=== PATIENT | female | born 1940 | race Caucasian/White ===

== ENCOUNTER 2020-12-24 16:30 | Emergency (ER) | payer MEDICARE, OTHER ==
--- NOTE | 2020-12-24 17:59 | EDM.PDOC ---
ED HPI GENERAL MEDICAL PROBLEM - General Chief Complaint: Lower Extremity Injury/Pain Stated Complaint: ACCIDENT VIA [facility] Time Seen by Provider: 12/24/20 17:46 Source of Information: Reports: Patient History Limitations: Reports: No Limitations - History of Present Illness INITIAL COMMENTS - FREE TEXT/NARRATIVE: Tanika is a 80-year-old female presenting to the ED for evaluation of left ankle and left knee pain after [place]. She thinks that when she landed she inverted her left ankle causing pain in her left knee to buckle. She does have a history of an arthroplasty of the left knee done many years ago. She is complaining of pain over the medial and lateral ankle although there is minimal swelling and no obvious deformity. She is also complaining of medial knee and thigh pain. She has significant pain with movement and weightbearing. In fact, she has been unable to weight-bear since the incident. She does say the ankle pain is better after taking aspirin. - Related Data Allergies Allergy/AdvReac Type Severity Reaction Status Date / Time meperidine [From Demerol] Allergy Hypotension Verified 12/24/20 17:13 Home Meds: Home Meds Escitalopram [Lexapro] 1 tab PO DAILY 12/24/20 [History] Gabapentin [Neurontin] 3 tab PO DAILY 12/24/20 [History] Metoprolol Succinate [Toprol XL] 25 mg PO DAILY #30 tab.er 12/24/20 [Rx] lisinopriL [Lisinopril] 1 tab PO DAILY 12/24/20 [History] pindoloL [Pindolol] 1 tab PO BEDTIME 12/24/20 [History] traZODone 1 tab PO BEDTIME 12/24/20 [History] Past Medical History Dermatologic History: Reports: Benign Melanoma - Past Surgical History GI Surgical History: Reports: Cholecystectomy Female Surgical History: Reports: Hysterectomy Musculoskeletal Surgical History: Reports: Knee Replacement Social & Family History - Tobacco Use Tobacco Use Status *Q: Never Tobacco User Review of Systems - Review of Systems Review Of Systems: See Below Constitutional: Reports: No Symptoms Respiratory: Reports: No Symptoms Cardiovascular: Reports: No Symptoms GI/Abdominal: Reports: No Symptoms Genitourinary: Reports: No Symptoms Musculoskeletal: Reports: Foot Pain (Left ankle pain), Joint Pain (Left ankle and knee pain), Joint Swelling (Mild left knee swelling) Skin: Reports: No Symptoms Neurological: Reports: No Symptoms Psychiatric: Reports: No Symptoms ED EXAM, GENERAL - Physical Exam Exam: See Below Exam Limited By: No Limitations General Appearance: Alert, Mild Distress Extremities: Joint Swelling (Mild swelling of the left knee. History of an arthroplasty on the left knee.), Limited Range of Motion (Limited range of motion of the left ankle due to pain. Limited range of motion of the left knee due to pain.), Other (Significant pain with palpation over the left medial knee and medial thigh. There is no obvious cords, skin redness, or swelling. Tenderness to palpation over the medial and lateral malleolus without evidence for swelling. Increased pain with inversion, flexion, and extension.) Neurological: Alert, Oriented, Normal Cognition, No Motor/Sensory Deficits Psychiatric: Normal Affect, Normal Mood Skin Exam: Warm, Dry, Intact, Normal Color Course - Vital Signs Last Recorded V/S: Last Vital Signs Temp 36.3 C 12/24/20 17:24 Pulse 87 12/24/20 17:24 Resp 18 12/24/20 17:24 BP 174/80 H 12/24/20 17:24 Pulse Ox 96 12/24/20 17:24 - Orders/Labs/Meds Orders: Active Orders 24 hr Category Date Time Status Ankle Min 3V Lt [CR] Stat Exams 12/24/20 17:32 Taken Knee 3V Lt [CR] Stat Exams 12/24/20 17:33 Taken - Radiology Interpretation Free Text/Narrative:: I reviewed the three-view x-ray of the left knee. The prosthesis is well seated. There is no evidence for acute failure, fracture, or dislocation. I reviewed the three-view x-ray of the left ankle demonstrating a minimally displaced torus fracture of the distal fibula. The mortise appears intact. - Re-Assessments/Exams Free Text/Narrative Re-Assessment/Exam: 12/24/20 18:26 work-up shows that the patient has a torus fracture of the distal left fibula. We will put her in a walking boot and nonweightbearing on crutches. The walking boot is so that she may put it on and take it off to bathe. The patient is returning to her home in [facility] on Monday (and 2 days) so we will burn a CD with her images so that she may follow-up with her local orthopedist next week. I encouraged her to ice and elevate the ankle and knee to reduce pain and swelling. She may take Tylenol for pain. We will provide her with a small amount of hydrocodone for breakthrough pain. Indication to return to the ED was discussed. Departure - Departure Time of Disposition: 18:38 Disposition: Home, Self-Care 01 Clinical Impression: Fracture of fibula, distal, left, closed Qualifiers: Encounter type: initial encounter Fracture morphology: torus Qualified Code(s): S82.822A - Torus fracture of lower end of left fibula, initial encounter for closed fracture - Discharge Information Prescriptions: Metoprolol Succinate [Toprol XL] 25 mg PO DAILY #30 tab.er Instructions: Displaced Fibular Ankle Fracture Treated With ORIF Referrals: PCP,Unknown [Primary Care Provider] - Forms: ED Department Discharge Care Plan Goals: Your work-up today has shown that the knee appears to be in good condition and well seated. Your ankle however has a fracture of the distal fibula that is minimally displaced. We will put you in a walking boot although I do not want you weightbearing with it. I had like you to use crutches to ambulate. You should ice and elevate the ankle to reduce pain and swelling. You may continue to take Tylenol for pain control. I will provide you with a small amount of hydrocodone for breakthrough pain should it become too severe. I would like you to follow-up with an orthopedic surgeon when you return to [place], [place] this week. We have provided you with a copy of the images to take to that appointment. Return to the ED should you develop any new onset of numbness, tingling, blueness of the foot or toes, or coolness in the foot. Sepsis Event Note (ED) - Evaluation Sepsis Screening Result: No Definite Risk - Focused Exam Vital Signs: Vital Signs Temp Pulse Resp BP Pulse Ox 12/24/20 17:24 36.3 C 87 18 174/80 H 96 12/24/20 16:35 36.3 C 87 18 174/80 H 96 - Problem List & Annotations (1) Fracture of fibula, distal, left, closed SNOMED Code(s): 167905931, [id number] Code(s): S82.832A - OTH FRACTURE OF UPPER AND LOWER END OF LEFT FIBULA, INIT Status: Acute Current Visit: Yes Qualifiers: Encounter type: initial encounter Fracture morphology: torus Qualified Code(s): S82.822A - Torus fracture of lower end of left fibula, initial encounter for closed fracture
[2020-12-24] MEDS ORDERED: Acetaminophen/HYDROcodone 325-5 MG Tab PO ONE (19:08)
--- NOTE | 2020-12-25 09:37 | CR ---
Knee 3V Lt, Ankle Min 3V Lt CLINICAL HISTORY: Pain, injury FINDINGS: No acute fracture or dislocation is noted. There are no osseous lesions. Patient has a total knee arthroplasty. Components appear well seated. Impression: Negative Knee 3V Lt, Ankle Min 3V Lt CLINICAL HISTORY: Pain, fall FINDINGS: The soft tissues are swollen. There is an oblique fracture of the distal fibula. There is mild asymmetry in the ankle mortise with lateral narrowing and medial widening. Impression: Distal fibular fracture Asymmetry at the ankle mortise suggests some ligamentous injury
== END 2020-12-24 20:10 | disposition home or self-care (01) ==
LOC: JP.ED 16:30
DX: S82.822A Torus fracture of lower end of left fibula, initial encounter for closed fracture (principal); Z88.5 Allergy status to narcotic agent; Z79.899 Other long term (current) drug therapy; Z96.652 Presence of left artificial knee joint; W17.89XA Other fall from one level to another, initial encounter
CPT/HCPCS: 73562; 73610; 99283; A9270